=== PATIENT | male | born 1935 | race Caucasian/White ===

== ENCOUNTER 2022-07-15 08:34 | Inpatient (IN) ==
[2022-07-15] MEDS ORDERED: SODIUM CHLORIDE 0.9% 500 ML IV SCH (09:00)
--- NOTE | 2022-07-15 09:21 | Emergency Department Note ---
Impression & Plan Acute alteration in mental status, SARS-CoV-2 positive this is not my note but the system is forcing me to sign. [facility] ED Provider Note NAME: LA NENA SCHAEFER Jr AGE: 87 SEX: M : 1935 ARRIVES VIA: Ambulance INFORMANT: Patient, EMS personnel, the patient's family ED PROVIDER(S): Chava Chavez DO CHIEF COMPLAINT: Altered mental status HPI: The patient is an 87-year-old male who presented to the emergency depar tme by ambulance for an evaluation of altered mental status. The patient has a history of metastatic prostate cancer. Patient at this time does answer some questions. He is denying having any chest pain. He denies having any headache. There is no reported vomiting or fever. This morning he was noted to be confused. He was talking inappropriately. He did not have a positive stroke screen for the prehospital personnel. The patient arrived via ALS. The patient went to bed at his normal time. He was last known completely well sometime around 10 PM. The patient was in his normal mental status last evening. ROS: See above HPI for pertinent positives & negatives. A total of 10 systems reviewed and were otherwise negative. PAST MEDICAL HISTORY: See Below PAST SURGICAL HISTORY: See Below FAMILY HISTORY: See Below SOCIAL HISTORY: See Below HOME MEDICATIONS: See Below ALLERGIES: See Below VITALS: See Below PHYSICAL EXAMINATION: GENERAL: The patient is listless and slow to answer questions. He does appear to answer to his name. EARS, NOSE, MOUTH AND THROAT: The nose is without any evidence of any deformity. NECK: The neck is nontender and supple. RESPIRATORY: Normal respiratory effort is noted there is no evidence of wheezing rhonchi or rales CARDIOVASCULAR: Irregular heart sounds were noted to auscultation. There is no definite murmur. GASTROINTESTINAL: The abdomen is distended. There is diffuse tenderness palpation but no guarding rigidity. MUSCULOSKELETAL/EXTREMITIES: There is no evidence of gross deformity full range of motion is noted in the hips and shoulders. SKIN: Skin is warm and dry. There is no significant edema. NEUROLOGIC: Patient is awake verbal commands. He is oriented to person and place. Strength is diminished but symmetric. Voice is very soft. MEDICAL DECISION MAKING: The patient is an 87-year-old male who presented to the emergency department for evaluation of altered mental status. The patient was with family who noted him to be confused this morning. He arrived via ALS. There was no definite focal neurologic findings. The patient was not made a stroke alert because his last known well time was last evening somewhere around 10 PM. I discussed the patient's laboratory and radiographic studies with him and his family members. Because no definite cause could be found and because the patient still had altered mental status I discussed his condition with the on-call [facility] hospitalist. They have agreed to evaluate the patient in the emergency depart ment for further management and disposition. Triage Nursing notes reviewed. Prior medical records reviewed Vital Signs: reviewed and remarkable for no significant abnormalities Differential diagnosis: Infection, hypoglycemia, electrolyte abnormalities, overdose, toxicologic, cardiac sources, intracerebral event, neurologic, trauma, as well as other pathologies. ER treatment provided: See below Diagnostics interpreted by me: ECG: EKG was obtained in the emergency department. My interpretation is atrial fibrillation at 95 bpm. There was no PVCs noted. Nonspecific ST abnormalities were noted. Poor R wave progression was noted. This was compared to a tracing from February 18, 2022. No changes were noted. Cardiac Monitoring: An order was placed for continuous cardiac monitoring. The monitor shows a rate of 83 bpm with sinus rhythm. Laboratory studies: As stated above and show below. Imaging studies: See below. Radiographic imaging was reviewed by myself Consultation(s): I discussed this case [facility]. Past Med/Surg History Medical History GERD (gastroesophageal reflux disease) Hyperlipidemia Hypertension Prostate cancer metastatic to bone Surgical History H/O lithotripsy S/P appendectomy S/P cholecystectomy S/P hernia repair Family History Uncle Skin cancer Social History Smoking Status: Former smoker Hx Alcohol Use: No Preferred Language: Thai Communication Ability: Effective Guest Associate Required: No marital status: / Current Living Situation: Family Current Living Situation Comment: home with granddaughter Whit current occupational status: retired Feels Safe at Home: Yes Allergies Allergies Allergy/AdvReac Type Severity Reaction Status Date / Time No Known Drug Allergies Allergy Unknown Verified 02/26/22 21:16 donepezil [From Aricept] AdvReac Intermediate Diarrhea Unverified 08/15/21 11:43 Home Meds Home Medications Medication Instructions Recorded Confirmed allopurinol 100 mg tablet 100 mg PO QAM 02/03/20 07/15/22 aspirin 81 mg tablet,delayed 81 mg PO QAM 02/03/20 07/15/22 release cholecalciferol (vitamin D3) 25 25 mcg PO DAILY 02/03/20 07/15/22 mcg (1,000 unit) capsule ascorbic acid (vitamin C) 1,000 mg 1 g PO DAILY 06/25/20 07/15/22 tablet (Vitamin C) cyanocobalamin (vitamin B-12) 1,000 mcg PO DAILY 06/25/20 07/15/22 1,000 mcg tablet (Vitamin B-12) diclofenac sodium 1 % topical gel 2 g topical UD PRN Pain, Moderate 06/25/20 07/15/22 omeprazole 20 mg capsule,delayed 20 mg PO DAILY 06/25/20 07/15/22 release pyridoxine (vitamin B6) 100 mg 100 mg PO DAILY 06/25/20 07/15/22 tablet (Vitamin B-6) abiraterone 500 mg tablet 1,000 mg PO HS 02/26/22 07/15/22 lisinopril 2.5 mg tablet 2.5 mg PO HS 02/26/22 07/15/22 nitroglycerin 0.4 mg sublingual 0.4 mg sublingual UD PRN Chest Pain 02/26/22 07/15/22 tablet sennosides 8.6 mg capsule (senna) 8.6 mg PO DAILY 02/26/22 07/15/22 gabapentin 100 mg capsule 100 mg PO AMHS 07/15/22 07/15/22 Results & Data (ED) Vital Signs Vital Signs - 24 hr 07/15/22 09:03 07/15/22 08:33 07/15/22 09:33 Temperature 36.9 C Temperature Source Oral Pulse Rate 90 103 H 91 H Pulse Rhythm Regular Respiratory Rate 21 21 Respiratory Effort / Characteristics Non-Labored Respiratory Depth Normal Respiratory Pattern Regular Blood Pressure 184/143 H Blood Pressure Mean 156 Blood Pressure Position Sitting Pulse Oximetry 94 94 Oxygen Delivery Method Room Air Room Air Sepsis Recent Fever Within 48 Hours No Sepsis New/Unexplained Change in Mental Status No Sepsis Action Taken by Nursing Physician Notified 07/15/22 09:33 Temperature Temperature Source Pulse Rate Pulse Rhythm Respiratory Rate Respiratory Effort / Characteristics Respiratory Depth Respiratory Pattern Blood Pressure Blood Pressure Mean Blood Pressure Position Pulse Oximetry 93 Oxygen Delivery Method Room Air Sepsis Recent Fever Within 48 Hours Sepsis New/Unexplained Change in Mental Status Sepsis Action Taken by Snf Medications Current Medication List: was personally reviewed by me Laboratory Data Attestation: I reviewed the patient's lab results. 07/15/22 08:30 07/15/22 08:30 Lab Results 07/15/22 07/15/22 07/15/22 Range/Units 08:30 08:30 08:30 WBC 8.43 (4.8-10.8) K/ul RBC 4.74 (4.70-6.10) M/uL Hgb 15.6 (14.0-18.0) g/dl Hct 44.8 (42.0-52.0) % MCV 94.5 (80.0-100.0) fL MCH 32.9 (25.0-34.0) pg MCHC 34.8 (32.0-36.0) g/dL RDW Std Deviation 52.0 H (36.4-46.3) fL RDW Coeff of Neville 14.9 H (11.5-14.5) % Plt Count 144 (130-400) K/uL MPV 10.3 (9.4-12.4) fL Immature Gran % (Auto) 0.4 % Neut % (Auto) 85.4 % Lymph % (Auto) 6.8 % Stephenson % (Auto) 4.9 % Eos % (Auto) 2.1 % Baso % (Auto) 0.4 % Neut # (Auto) 7.21 H (1.40-6.50) K/uL Lymph # (Auto) 0.57 L (1.2-3.4) K/uL Stephenson # (Auto) 0.41 (0.11-0.59) K/uL Eos # (Auto) 0.18 (0-0.50) K/uL Baso # (Auto) 0.03 (0-0.2) K/uL Immature Gran # (Auto) 0.03 (0.01-0.20) K/uL PT 11.4 (9.0-12.0) Seconds INR 1.1 (0.9-1.1) APTT 24.9 (21.0-31.0) Seconds PTT Ratio 0.9 Sodium 140 (136-145) mmol/L Potassium 4.0 (3.5-5.1) mmol/L Chloride 105 (98-107) mmol/L Carbon Dioxide 26 (21-32) mmol/L Anion Gap 9 (3-11) BUN 23 (6-23) mg/dl Creatinine 1.08 (0.6-1.4) mg/dl Est Cr Clr Drug Dosing 47.9 ml/min Est GFR ( Amer) 70.2 ml/min Est GFR (Non-Af Amer) 60.5 ml/min BUN/Creatinine Ratio 21.3 H (10-20) Glucose 132 H (70-99(Fasting)) mg/dl Calcium 9.9 (8.5-10.1) mg/dl Magnesium 1.7 (1.7-2.4) mg/dl Total Bilirubin 2.0 H (0.2-1.0) mg/dl Direct Bilirubin 0.3 H (0-0.2) mg/dl AST 57 H (13-39) U/L ALT 32 (7-52) U/L Alkaline Phosphatase 89 (34-104) U/L Ammonia (18-72) umol/L Total Creatine Kinase 102 (30-223) U/L Troponin I High Sens 19.6 (0-20) pg/ml Total Protein 7.3 (6.0-8.3) gm/dl Albumin 3.9 (3.4-5.0) gm/dl Globulin 3.4 (2.5-4.0) gm/dl Albumin/Globulin Ratio 1.1 (0.9-2) Procalcitonin (0-0.5) ng/ml TSH (0.300-4.500) uIu/ml Free T4 (0.61-1.60) ng/dl Urine Color Urine Appearance (Clear) Urine pH (4.5-7.5) Ur Specific Prescott (1.000-1.030) Urine Protein (Negative) Urine Glucose (UA) (Negative) Urine Ketones (Negative) Urine Blood (Negative) Urine Nitrite (Negative) Urine Bilirubin (Negative) Urine Urobilinogen (Negative) Ur Leukocyte Esterase (Negative) Urine Opiates Screen (Neg) Ur Methadone, Qual (Neg) Urine Barbiturates (Neg) Ur Phencyclidine (PCP) (Neg) U Amphetamin/Meth Scrn (Neg) MDMA (Ecstasy) Screen (Neg) U Benzodiazepines Scrn (Neg) Ur Cocaine Metabolite (Neg) U Marijuana (THC) Screen (Neg) 07/15/22 07/15/22 07/15/22 Range/Units 08:30 10:48 10:48 WBC (4.8-10.8) K/ul RBC (4.70-6.10) M/uL Hgb (14.0-18.0) g/dl Hct (42.0-52.0) % MCV (80.0-100.0) fL MCH (25.0-34.0) pg MCHC (32.0-36.0) g/dL RDW Std Deviation (36.4-46.3) fL RDW Coeff of Neville (11.5-14.5) % Plt Count (130-400) K/uL MPV (9.4-12.4) fL Immature Gran % (Auto) % Neut % (Auto) % Lymph % (Auto) % Stephenson % (Auto) % Eos % (Auto) % Baso % (Auto) % Neut # (Auto) (1.40-6.50) K/uL Lymph # (Auto) (1.2-3.4) K/uL Stephenson # (Auto) (0.11-0.59) K/uL Eos # (Auto) (0-0.50) K/uL Baso # (Auto) (0-0.2) K/uL Immature Gran # (Auto) (0.01-0.20) K/uL PT (9.0-12.0) Seconds INR (0.9-1.1) APTT (21.0-31.0) Seconds PTT Ratio Sodium (136-145) mmol/L Potassium (3.5-5.1) mmol/L Chloride (98-107) mmol/L Carbon Dioxide (21-32) mmol/L Anion Gap (3-11) BUN (6-23) mg/dl Creatinine (0.6-1.4) mg/dl Est Cr Clr Drug Dosing ml/min Est GFR ( Amer) ml/min Est GFR (Non-Af Amer) ml/min BUN/Creatinine Ratio (10-20) Glucose (70-99(Fasting)) mg/dl Calcium (8.5-10.1) mg/dl Magnesium (1.7-2.4) mg/dl Total Bilirubin (0.2-1.0) mg/dl Direct Bilirubin (0-0.2) mg/dl AST (13-39) U/L ALT (7-52) U/L Alkaline Phosphatase (34-104) U/L Ammonia (18-72) umol/L Total Creatine Kinase (30-223) U/L Troponin I High Sens (0-20) pg/ml Total Protein (6.0-8.3) gm/dl Albumin (3.4-5.0) gm/dl Globulin (2.5-4.0) gm/dl Albumin/Globulin Ratio (0.9-2) Procalcitonin (0-0.5) ng/ml TSH 10.757 H (0.300-4.500) uIu/ml Free T4 0.93 (0.61-1.60) ng/dl Urine Color Yellow Urine Appearance Clear (Clear) Urine pH 5.5 (4.5-7.5) Ur Specific Prescott 1.019 (1.000-1.030) Urine Protein Negative (Negative) Urine Glucose (UA) Negative (Negative) Urine Ketones Negative (Negative) Urine Blood Negative (Negative) Urine Nitrite Negative (Negative) Urine Bilirubin Negative (Negative) Urine Urobilinogen Negative (Negative) Ur Leukocyte Esterase Negative (Negative) Urine Opiates Screen Neg (Neg) Ur Methadone, Qual Neg (Neg) Urine Barbiturates Neg (Neg) Ur Phencyclidine (PCP) Neg (Neg) U Amphetamin/Meth Scrn Neg (Neg) MDMA (Ecstasy) Screen Neg (Neg) U Benzodiazepines Scrn Neg (Neg) Ur Cocaine Metabolite Neg (Neg) U Marijuana (THC) Screen Neg (Neg) 07/15/22 07/15/22 Range/Units 11:41 11:48 WBC (4.8-10.8) K/ul RBC (4.70-6.10) M/uL Hgb (14.0-18.0) g/dl Hct (42.0-52.0) % MCV (80.0-100.0) fL MCH (25.0-34.0) pg MCHC (32.0-36.0) g/dL RDW Std Deviation (36.4-46.3) fL RDW Coeff of Neville (11.5-14.5) % Plt Count (130-400) K/uL MPV (9.4-12.4) fL Immature Gran % (Auto) % Neut % (Auto) % Lymph % (Auto) % Stephenson % (Auto) % Eos % (Auto) % Baso % (Auto) % Neut # (Auto) (1.40-6.50) K/uL Lymph # (Auto) (1.2-3.4) K/uL Stephenson # (Auto) (0.11-0.59) K/uL Eos # (Auto) (0-0.50) K/uL Baso # (Auto) (0-0.2) K/uL Immature Gran # (Auto) (0.01-0.20) K/uL PT (9.0-12.0) Seconds INR (0.9-1.1) APTT (21.0-31.0) Seconds PTT Ratio Sodium (136-145) mmol/L Potassium (3.5-5.1) mmol/L Chloride (98-107) mmol/L Carbon Dioxide (21-32) mmol/L Anion Gap (3-11) BUN (6-23) mg/dl Creatinine (0.6-1.4) mg/dl Est Cr Clr Drug Dosing ml/min Est GFR ( Amer) ml/min Est GFR (Non-Af Amer) ml/min BUN/Creatinine Ratio (10-20) Glucose (70-99(Fasting)) mg/dl Calcium (8.5-10.1) mg/dl Magnesium (1.7-2.4) mg/dl Total Bilirubin (0.2-1.0) mg/dl Direct Bilirubin (0-0.2) mg/dl AST (13-39) U/L ALT (7-52) U/L Alkaline Phosphatase (34-104) U/L Ammonia 25.0 (18-72) umol/L Total Creatine Kinase (30-223) U/L Troponin I High Sens (0-20) pg/ml Total Protein (6.0-8.3) gm/dl Albumin (3.4-5.0) gm/dl Globulin (2.5-4.0) gm/dl Albumin/Globulin Ratio (0.9-2) Procalcitonin 2.51 H (0-0.5) ng/ml TSH (0.300-4.500) uIu/ml Free T4 (0.61-1.60) ng/dl Urine Color Urine Appearance (Clear) Urine pH (4.5-7.5) Ur Specific Prescott (1.000-1.030) Urine Protein (Negative) Urine Glucose (UA) (Negative) Urine Ketones (Negative) Urine Blood (Negative) Urine Nitrite (Negative) Urine Bilirubin (Negative) Urine Urobilinogen (Negative) Ur Leukocyte Esterase (Negative) Urine Opiates Screen (Neg) Ur Methadone, Qual (Neg) Urine Barbiturates (Neg) Ur Phencyclidine (PCP) (Neg) U Amphetamin/Meth Scrn (Neg) MDMA (Ecstasy) Screen (Neg) U Benzodiazepines Scrn (Neg) Ur Cocaine Metabolite (Neg) U Marijuana (THC) Screen (Neg) Administered Medications Ceftriaxone Sodium 1,000 mg/ (Dextrose) 50 mls @ 100 mls/hr IV DAILY KAMARI; Pr otocol Stop: 07/22/22 15:29 Last Infusion: 07/15/22 19:24 Dose: 0 mls/hr Documented By: Admin: 07/15/22 17:16 Dose: 100 mls/hr Documented By: AUSTEN Levothyroxine Sodium (Levothyroxine Sodium 50 Mcg Tablet) 50 mcg PO DAILYBB KAMARI Stop: 08/14/22 15:09 Last Admin: 07/15/22 17:00 Dose: Not Given Documented By: AUSTEN Miscellaneous (Abiraterone - Order Awaiting Action) 1 each N/A QS KAMARI Stop: 08/14/22 15:59 Last Admin: 07/15/22 18:49 Dose: Not Given Documented By: CAM Saccharomyces Boulardii (Saccharomyces Boulardii 250 Mg Cap) 250 mg PO DAILY KAMARI Stop: 08/14/22 15:09 Last Admin: 07/15/22 17:00 Dose: Not Given Documented By: Discontinued Medications Azithromycin (Azithromycin 250 Mg Tab) 500 mg PO NOW ONE Stop: 07/15/22 15:11 Last Admin: 07/15/22 16:29 Dose: Not Given Documented By: Gadobutrol (Gadobutrol 65ml Vial) 7.5 ml IV ONCE ONE Stop: 07/15/22 12:57 Last Admin: 07/15/22 12:57 Dose: 7.5 ml Documented By: Sodium Chloride (Nss) 500 mls @ 999 mls/hr IV .Q31M KAMARI Stop: 07/15/22 09:30 Last Infusion: 07/15/22 10:12 Dose: 0 mls/hr Documented By: Admin: 07/15/22 09:40 Dose: 999 mls/hr Documented By: Magnesium Sulfate/Dextrose (Magnesium Sulfate / D5w) 1 gm in 100 mls @ 100 mls/hr IV NOW STA Stop: 07/15/22 12:29 Last Infusion: 07/15/22 14:36 Dose: 0 mls/hr Documented By: Admin: 07/15/22 13:36 Dose: 100 mls/hr Documented By: Acetaminophen (Ofirmev) 1,000 mg in 100 mls @ 400 mls/hr IV NOW STA Stop: 07/15/22 15:22 Last Infusion: 07/15/22 15:37 Dose: 0 mls/hr Documented By: Admin: 07/15/22 15:22 Dose: 400 mls/hr Documented By: Azithromycin 500 mg/ Dextrose 255 mls @ 127.5 mls/hr IV NOW STA Stop: 07/15/22 17:38 Last Infusion: 07/15/22 17:13 Dose: 0 mls/hr Documented By: Admin: 07/15/22 16:51 Dose: 127.5 mls/hr Documented By: Imaging Data Radiologist's Impression: Abdomen/Pelvis CT 07/15/22 08:46 CT abd pelvis wo con CLINICAL HISTORY: distended TECHNIQUE: Helical axial images of the abdomen and pelvis were obtained. Automated dose lowering techniques and/or adjustment according to patient size were utilized for this exam. This exam was performed without intravenous contrast. CT DOSE: 1332.78 mGy.cm COMPARISON: Comparison is made to CT abdomen pelvis 02/26/2022 FINDINGS: Lower chest: Biatrial enlargement is seen. Liver: Unremarkable. No focal lesions are seen. Gallbladder and biliary tree: Patient is status post cholecystectomy. No intra- or extrahepatic biliary ductal dilation. Pancreas: Unremarkable, no focal lesions. Spleen: Unremarkable. Adrenals: Unremarkable. Kidneys and ureters: Nonobstructive nephrolithiasis is seen. Bladder: Unremarkable. Reproductive organs: Unremarkable. Bowel: Patient is status post appendectomy. Lymph nodes Retroperitoneal: Unremarkable. Pelvic: Unremarkable. Mesenteric: Unremarkable. Peritoneum: Normal. Vessels: Tiny infrarenal aortic aneurysm measures up to 28 mm in diameter. Abdominal wall: Unremarkable. Bones: Degenerative changes in the visualized spine. IMPRESSION: No acute abnormalities and in particular no evidence of bowel obstruction. ACT 112: Negative or not required by law. Electronically signed by: Nguyễn Roblero M.D. 07/15/2022 9:24 AM Chest X-Ray 07/15/22 08:46 XR chest 1V portable HISTORY: 87 years-old Male weakness acute weakness COMPARISON: Chest radiograph 02/26/2022 TECHNIQUE: AP view of the chest FINDINGS: Cardiac silhouette is enlarged. Atherosclerosis of the aorta. No pneumothorax. Trace pleural effusions. Chronic interstitial coarsening. Subtle ill-defined bilateral midlung opacities are new from prior. Degenerative changes of the shoulders and spine. IMPRESSION: 1. Cardiomegaly without overt pulmonary edema. 2. Chronic interstitial coarsening with subtle ill-defined bilateral airspace opacities. Correlate clinically to exclude a nonspecific infectious or inf lammatory pneumonitis. ACT 112: Negative or not required by law. The above report was generated using voice recognition software. It may contain grammatical, syntax or spelling errors. Electronically signed by: Zechariah Quinteros M.D. 07/15/2022 9:[address] 07/15/22 08:46 CT head/brain wo con CLINICAL HISTORY: 87 years-old Male with ams. Acutely altered mental status TECHNIQUE: Multiple axial CT images of the head were obtained without contrast. A dose lowering technique was utilized adhering to the principles of ALARA. COMPARISON: 02/19/2022 PET FINDINGS: No acute intracranial hemorrhage, midline shift, intracranial mass, hydrocephalus, territorial ischemia or abnormal extra-axial collection. Involutional changes with chronic microvascular ischemic disease. The study is motion degraded. The calvarium is intact. Status post resection of the previously described right facial lesion. Complete opacification of the mastoid air cells and bilateral middle ear effusions. Unremarkable soft tissues. IMPRESSION: 1. No acute intracranial abnormality. 2. Large mastoid and middle ear effusions, similar to the prior study. ACT 112: Negative or not required by law. The above report was generated using voice recognition software. It may contain grammatical, syntax or spelling errors. Electronically signed by: Zechariah Quinteros M.D. 07/15/2022 9:19 AM Brain MRI 07/15/22 11:33 MRI OF THE BRAIN COMBO CLINICAL HISTORY: Strokelike symptoms. COMPARISON STUDY: CT of the brain dated 07/15/2022. TECHNIQUE: MRI of the brain was performed utilizing various T1 and T2-weighted sequences in the axial, sagittal, and coronal planes. Contrast-enhanced sequences were acquired following the administration of 7.5 cc of Gadavist. FINDINGS: Brain parenchyma: There is age-related involutional change noting mild subcortical and periventricular microangiopathic disease. There is no hemorrhage or mass effect. There is no restricted diffusion to suggest acute ischemia. No enhancing mass lesion is identified on the postcontrast images. Gonzalez-white matter differentiation is preserved. No extra-axial fluid collection is seen. The cerebellar tonsils are normal in configuration. Ventricles, sulci, and cisterns: Prominent secondary to involutional change. Pituitary and sella: Unremarkable. Intracranial vasculature: Normal flow voids are maintained at the skull base. Orbits: The bony orbits are grossly intact. Orbital contents are normal in appearance. Sinuses and mastoids: There are bilateral mastoid effusions, left larger than right. Fluid is seen within the middle ear bilaterally. Mucosal thickening is noted in the sphenoid sinuses. The remaining paranasal sinuses are clear. Calvarium: Unremarkable. Cervical cord: Partially visualized cervical spinal cord is normal in morphology and signal intensity. IMPRESSION: No acute intracranial abnormality. ACT 112: Negative or not required by law. Electronically signed by: Austin Darby M.D. 07/15/2022 1:09 PM Discharge Plan Visit Data Patient Disposition: Admitted As Inpatient Discharge Instructions Interventions: ED Discharge Assessment Last Done: 07/15/22 15:10
--- NOTE | 2022-07-15 09:21 | CT Scan Report ---
CT head/brain wo con CLINICAL HISTORY: 87 years-old Male with ams. Acutely altered mental status TECHNIQUE: Multiple axial CT images of the head were obtained without contrast. A dose lowering tech nique was utilized adhering to the principles of ALARA. COMPARISON: 02/19/2022 PET FINDINGS: No acute intracranial hemorrhage, midline shift, intracranial mass, hydrocephalus, territorial ischem ia or abnormal extra-axial collection. Involutional changes with chronic microvascular ischemic disea se. The study is motion degraded. The calvarium is intact. Status post resection of the previously described right facial lesion. Compl ete opacification of the mastoid air cells and bilateral middle ear effusions. Unremarkable soft tiss ues. IMPRESSION: 1. No acute intracranial abnormality. 2. Large mastoid and middle ear effusions, similar to the prior study. ACT 112: Negative or not required by law. The above report was generated using voice recognition software. It may contain grammatical, syntax o r spelling errors. Electronically signed by: Zechariah Quinteros M.D. 07/15/2022 9:19 AM
[2022-07-15 09:22] LABS: Basophils # (auto) 0.03 K/uL (0-0.2); Basophils % (auto) 0.4 %; Eosinophils # (auto) 0.18 K/uL (0-0.50); Eosinophils % (auto) 2.1 %; Hematocrit (blood only) 44.8 % (42.0-52.0); Hemoglobin 15.6 g/dl (14.0-18.0); Immature Granulocytes # (auto) 0.03 K/uL (0.01-0.20); Immature Granulocytes % (auto) 0.4 %; Lymphocytes # (auto) 0.57 K/uL (1.2-3.4); Lymphocytes % (auto) 6.8 %; Mean Corpuscular Hemoglobin 32.9 pg (25.0-34.0); Mean Corpuscular Hgb Conc 34.8 g/dL (32.0-36.0); Mean Corpuscular Volume 94.5 fL (80.0-100.0); Mean Platelet Volume 10.3 fL (9.4-12.4); Monocytes # (auto) 0.41 K/uL (0.11-0.59); Monocytes % (auto) 4.9 %; Neutrophils # (auto) 7.21 K/uL (1.40-6.50); Neutrophils % (auto) 85.4 %; Platelet Count 144 K/uL (130-400); RDW Coefficient of Variation 14.9 % (11.5-14.5); Red Blood Count 4.74 M/uL (4.70-6.10); White Blood Count 8.43 K/ul (4.8-10.8)
--- NOTE | 2022-07-15 09:25 | CT Scan Report ---
CT abd pelvis wo con CLINICAL HISTORY: distended TECHNIQUE: Helical axial images of the abdomen and pelvis were obtained. Automated dose lowering tech niques and/or adjustment according to patient size were utilized for this exam. This exam was perfor med without intravenous contrast. CT DOSE: 1332.78 mGy.cm COMPARISON: Comparison is made to CT abdomen pelvis 02/26/2022 FINDINGS: Lower chest: Biatrial enlargement is seen. Liver: Unremarkable. No focal lesions are seen. Gallbladder and biliary tree: Patient is status post cholecystectomy. No intra- or extrahepatic bilia ry ductal dilation. Pancreas: Unremarkable, no focal lesions. Spleen: Unremarkable. Adrenals: Unremarkable. Kidneys and ureters: Nonobstructive nephrolithiasis is seen. Bladder: Unremarkable. Reproductive organs: Unremarkable. Bowel: Patient is status post appendectomy. Lymph nodes Retroperitoneal: Unremarkable. Pelvic: Unremarkable. Mesenteric: Unremarkable. Peritoneum: Normal. Vessels: Tiny infrarenal aortic aneurysm measures up to 28 mm in diameter. Abdominal wall: Unremarkable. Bones: Degenerative changes in the visualized spine. IMPRESSION: No acute abnormalities and in particular no evidence of bowel obstruction. ACT 112: Negative or not required by law. Electronically signed by: Nguyễn Roblero M.D. 07/15/2022 9:24 AM
[2022-07-15 09:39] LABS: Albumin Globulin Ratio 1.1 (0.9-2); Albumin Level 3.9 gm/dl (3.4-5.0); BUN Creatinine Ratio 21.3 (10-20); Calcium 9.9 mg/dl (8.5-10.1); Creatinine Clr Calc Pharmacy 47.9 ml/min; Est GFR (African American) 70.2 ml/min; Est GFR (Non-African American) 60.5 ml/min; Globulin 3.4 gm/dl (2.5-4.0); Magnesium 1.7 mg/dl (1.7-2.4); Total Protein 7.3 gm/dl (6.0-8.3)
[2022-07-15 09:45] LABS: Troponin I High Sensitivity 19.6 pg/ml (0-20)
--- NOTE | 2022-07-15 09:50 | XRay Report ---
XR chest 1V portable HISTORY: 87 years-old Male weakness acute weakness COMPARISON: Chest radiograph 02/26/2022 TECHNIQUE: AP view of the chest FINDINGS: Cardiac silhouette is enlarged. Atherosclerosis of the aorta. No pneumothorax. Trace pleural effusion s. Chronic interstitial coarsening. Subtle ill-defined bilateral midlung opacities are new from prior . Degenerative changes of the shoulders and spine. IMPRESSION: 1. Cardiomegaly without overt pulmonary edema. 2. Chronic interstitial coarsening with subtle ill-defined bilateral airspace opacities. Correlate cl inically to exclude a nonspecific infectious or inflammatory pneumonitis. ACT 112: Negative or not required by law. The above report was generated using voice recognition software. It may contain grammatical, syntax o r spelling errors. Electronically signed by: Zechariah Quinteros M.D. 07/15/2022 9:48 AM
[2022-07-15 09:54] LABS: Thyroid Stimulating Hormone 10.757 uIu/ml (0.300-4.500)
[2022-07-15 09:58] LABS: INR 1.1 (0.9-1.1); Partial Thromboplastin Ratio 0.9; Partial Thromboplastin Time 24.9 Seconds (21.0-31.0); Prothrombin Time 11.4 Seconds (9.0-12.0)
[2022-07-15 10:29] LABS: T4 Free Thyroxine 0.93 ng/dl (0.61-1.60)
--- NOTE | 2022-07-15 11:24 | History & Physical Report ---
Date of Service July 15, 2022 Assessment & Plan (1) Metabolic encephalopathy: (2) Generalized weakness: (3) SARS-CoV-2 positive: (4) Prostate cancer metastatic to bone: (5) Hypothyroidism (acquired): (6) Hypertension: (7) Hyperlipidemia: (8) GERD (gastroesophageal reflux disease): Plan This is a 87-year-old male who has a significant past medical history of atrial fibrillation not on anticoagulation, HTN, HLD, gout, metastatic prostate cancer who presents to ED secondary to altered mental status x1 day. Pt Last known well, 07/14/22 prior to going to bed. Woke up 07/15/22 and granddaughter found in wheel chair confused, not acting self, with L sided weakness Metabolic Encephalopathy Generalized weakness SARS COV2 Positive Questionable pneumonitis on imaging admit to tele with procalcitonin elevated will treat empirically with Rocephin and azithromycin (500mg x 1 today and then 250mg po x 4 days) add probiotic MRI obtained w/o acute abnormality PT/OT blood culture pending clinically source does not appear to be infectious, although imaging of chest reading possible pneumonitis, likely 2/2 covid LR @ 80cc/hr x2 bag replace thyroid neuro checks sx may be explained 2/2 covid-19 dx, although he is mostly w/o resp sx given no hypoxia will hold off on any covid specific tx right now will hold gabapentin for now given mental status will make pt NPO as per nurse pt unable to cooperate with dysphagia screen due to cognition, will make NPO until more alert Hypothyroidism TSH elevated 10.7, although free T4 wnl but 0.93 will start levothyroxine 50mcg daily recommend recheck tsh as OP 6-8 weeks Afib pt with known afib follows Dr. Sarabia not on any OAC 2/2 to frail and fall risk on ASA, rate controlled give 1g mag sulfate, K 4.0 Prostate Ca with mets to Bone follows Dr[facility], last seen 06/05/22 currently on abiraterone, LFTS need followed per family was on Xtandi til 07/13 and stopped on his own, Dr. Arenas recommended restarting Abiraterone which he took on 07/14 ( he previously tolerated this med) He receives Lupron [id number] Hyperglycemia bsg 132 in ED A1C in a.m. 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 Guerrero, please see addendum A total of 75 minutes were spent with greater than 50% of that time face to face with the patient, personally reviewing all current laboratories, imaging studies, past medication reconciliation, outpatient chart review, and discussion with specialists to collaborate care for the patient with attending. Please see attending documentation for corrections and/or additions. History of Present Illness Chief Complaint: Altered mental status x1 day. Primary Care Provider: William Potts This is a 87-year-old male who has a significant past medical history of atrial fibrillation not on anticoagulation, HTN, HLD, gout, metastatic prostate cancer who presents to ED secondary to altered mental status x1 day. History is mostly obtained from prehospital personnel and ED provider. Son at bedside provides minimal history. Patient was in his normal mental state of health as of yesterday on 07/14/2022. His granddaughter lives with him. At approximately 7:00 this morning she heard him trying to get up and around. She found him in his wheelchair confused and not acting himself with concern for L sided weakness. She noted when she tried to put his left arm back on his wheel chair that it fell right back off. There was report that he may have been slurring his words. Due to change in status EMS was summoned. According to EMS report his vital signs were stable. It is noted that he recently was started and stopped on Xtandi approximately 2 days ago and that it was causing hallucinations. No reported seizure activity. He does have stage IV prostate cancer and [facility] At baseline he is typically in a wheelchair but able to perform self transfers. His granddaughter does assist him but able to perform adls. Typically he is alert and oriented x3 with occasional bouts of confusion. In ED patient remained hemodynamically stable. There is initial reading of significantly elevated blood pressure however during my evaluation his blood pressure was normotensive. His CBC and CMP were generally unremarkable except for mildly elevated glucose at 132, total bilirubin at 2.0 and AST of 57. His TSH was 10.75 however free T4 was normal. Blood cultures, drug tox screen, ammonia level and urine currently pending on admission. EKG revealed a rate controlled atrial fibrillation. Patient follows with [facility] cardiology. He is not anticoagulated secondary to age, frailty and frequent falls. He did have recent lab work done on 06/16/2022 as outpatient that was reviewed and [facility] medical records. At that time BNP generally unremarkable, vitamin D 74. In regards to the patient's prostate cancer he was initially diagnosed in 2019 in which she had been on androgen deprivation therapy with Lupron as well as bicalutamide. Initial PSA was greater than 100. Records reviewed from December 2021 note revealed patient currently on abiraterone treatment. He does have mets to bone. Supportive care/hospice was also discussed. Most recent PSA 05/2022 was WNL. Allergies Allergy/AdvReac Type Severity Reaction Status Date / Time No Known Drug Allergies Allergy Unknown Verified 02/26/22 21:16 donepezil [From Aricept] AdvReac Intermediate Diarrhea Unverified 08/15/21 11:43 Home Medications Medication Instructions Recorded Confirmed Type allopurinol 100 mg tablet 100 mg PO QAM 02/03/20 07/15/22 History aspirin 81 mg tablet,delayed 81 mg PO QAM 02/03/20 07/15/22 History release cholecalciferol (vitamin D3) 25 25 mcg PO DAILY 02/03/20 07/15/22 History mcg (1,000 unit) capsule ascorbic acid (vitamin C) 1,000 mg 1 g PO DAILY 06/25/20 07/15/22 History tablet (Vitamin C) cyanocobalamin (vitamin B-12) 1,000 mcg PO DAILY 06/25/20 07/15/22 History 1,000 mcg tablet (Vitamin B-12) diclofenac sodium 1 % topical gel 2 g topical UD PRN Pain, Moderate 06/25/20 07/15/22 History omeprazole 20 mg capsule,delayed 20 mg PO DAILY 06/25/20 07/15/22 History release pyridoxine (vitamin B6) 100 mg 100 mg PO DAILY 06/25/20 07/15/22 History tablet (Vitamin B-6) abiraterone 500 mg tablet 1,000 mg PO HS 02/26/22 07/15/22 History lisinopril 2.5 mg tablet 2.5 mg PO HS 02/26/22 07/15/22 History nitroglycerin 0.4 mg sublingual 0.4 mg sublingual UD PRN Chest Pain 02/26/22 07/15/22 History tablet sennosides 8.6 mg capsule (senna) 8.6 mg PO DAILY 02/26/22 07/15/22 History gabapentin 100 mg capsule 100 mg PO AMHS 07/15/22 07/15/22 History Past Med/Surg History Medical History GERD (gastroesophageal reflux disease) Hyperlipidemia Hypertension Prostate cancer metastatic to bone Surgical History H/O lithotripsy S/P appendectomy S/P cholecystectomy S/P hernia repair Family History Uncle Skin cancer Social History Smoking Status: Former smoker Hx Alcohol Use: No Preferred Language: Turkmen Communication Ability: Effective Review Specialist Required: No marital status: / Current Living Situation: Family Current Living Situation Comment: home with granddaughter Whit current occupational status: retired Feels Safe at Home: Yes Review of Systems Review of Systems: All systems reviewed & are unremarkable except as noted in HPI & below Physical Exam Physical Exam: Constitutional: Elderly, M, Hard of hearing, WD/WN, vitals as above, NAD, lying in bed, drowsy but arousable to verbal stimulation, confused Head: Normocephalic, Atraumatic, temporal wasting Eyes: PERRL, conjunctivae normal, anicteric sclerae, ENMT: external ear and nose normal, oropharynx normal dry membranes Neck: trachea midline, no thyromegaly normal visual inspection Respiratory: normal respiratory effort, lungs clear to auscultation but decreased at bases due to poor insp effort/doesn't follow commands, no wheeze, rales, rhonchi. Normal insp/exp effort, no accessory muscle use Cardiovascular: reg rate, irr rhythm, no murmur, no edema Vessels: no JVD or carotid bruit Chest: normal inspection of chest Abdomen: normal bowel sounds, soft, nontender, no hepatosplenomegaly Musculoskeletal: no cyanosis or clubbing, AROM x 4, decreased wool scourer strength to LUE, b/l lower ext 3/5 Skin: no rashes, warm and dry normal turgor Neurologic: PERRL, EOMI, accommodation nl, no face palsy, no dysarthria CN's II-XI intact bilaterally and moves all extremities Psychiatric: A+Ox 1, understands he is in hospital butunable to tell me his name or son at bedside, euthymic affect Lymphatic: no cervical or axillary lymphadenopathy : deferred Results & Data Results & Data ([facility]) Vital Signs (Past 12 Hours) Vital Signs Temp Pulse Resp BP Pulse Ox O2 Del Method 07/15/22 09:33 93 Room Air 07/15/22 09:33 91 H 21 94 Room Air 07/15/22 08:33 36.9 C 103 H 21 184/143 H 94 Room Air 07/15/22 09:03 90 Laboratory Results Short CBC 07/15/22 Range/Units 08:30 WBC 8.43 (4.8-10.8) K/ul Hgb 15.6 (14.0-18.0) g/dl Hct 44.8 (42.0-52.0) % Plt Count 144 (130-400) K/uL BMP 07/15/22 08:30 Sodium 140 Potassium 4.0 Chloride 105 Carbon Dioxide 26 BUN 23 Creatinine 1.08 Glucose 132 H Calcium 9.9 Cardiac Enzymes 07/15/22 Range/Units 08:30 Total Creatine Kinase 102 (30-223) U/L Liver Function 07/15/22 Range/Units 08:30 Total Bilirubin 2.0 H (0.2-1.0) mg/dl Direct Bilirubin 0.3 H (0-0.2) mg/dl AST 57 H (13-39) U/L ALT 32 (7-52) U/L Alkaline Phosphatase 89 (34-104) U/L Albumin 3.9 (3.4-5.0) gm/dl Urine 07/15/22 Range/Units 10:48 Urine Color Yellow Urine Appearance Clear (Clear) Urine pH 5.5 (4.5-7.5) Ur Specific [place] 1.019 (1.000-1.030) Urine Protein Negative (Negative) Urine Glucose (UA) Negative (Negative) Diagnostic Findings Abdomen/Pelvis CT 07/15/22 08:46 CT abd pelvis wo con CLINICAL HISTORY: distended TECHNIQUE: Helical axial images of the abdomen and pelvis were obtained. Automated dose lowering techniques and/or adjustment according to patient size were utilized for this exam. This exam was performed without intravenous contrast. CT DOSE: 1332.78 mGy.cm COMPARISON: Comparison is made to CT abdomen pelvis 02/26/2022 FINDINGS: Lower chest: Biatrial enlargement is seen. Liver: Unremarkable. No focal lesions are seen. Gallbladder and biliary tree: Patient is status post cholecystectomy. No intra- or extrahepatic biliary ductal dilation. Pancreas: Unremarkable, no focal lesions. Spleen: Unremarkable. Adrenals: Unremarkable. Kidneys and ureters: Nonobstructive nephrolithiasis is seen. Bladder: Unremarkable. Reproductive organs: Unremarkable. Bowel: Patient is status post appendectomy. Lymph nodes Retroperitoneal: Unremarkable. Pelvic: Unremarkable. Mesenteric: Unremarkable. Peritoneum: Normal. Vessels: Tiny infrarenal aortic aneurysm measures up to 28 mm in diameter. Abdominal wall: Unremarkable. Bones: Degenerative changes in the visualized spine. IMPRESSION: No acute abnormalities and in particular no evidence of bowel obstruction. ACT 112: Negative or not required by law. Electronically signed by: Nguyễn Roblero M.D. 07/15/2022 9:24 AM Chest X-Ray 07/15/22 08:46 XR chest 1V portable HISTORY: 87 years-old Male weakness acute weakness COMPARISON: Chest radiograph 02/26/2022 TECHNIQUE: AP view of the chest FINDINGS: Cardiac silhouette is enlarged. Atherosclerosis of the aorta. No pneumothorax. Trace pleural effusions. Chronic interstitial coarsening. Subtle ill-defined bilateral midlung opacities are new from prior. Degenerative changes of the shoulders and spine. IMPRESSION: 1. Cardiomegaly without overt pulmonary edema. 2. Chronic interstitial coarsening with subtle ill-defined bilateral airspace opacities. Correlate clinically to exclude a nonspecific infectious or infl ammatory pneumonitis. ACT 112: Negative or not required by law. The above report was generated using voice recognition software. It may contain grammatical, syntax or spelling errors. Electronically signed by: Zechariah Quinteros M.D. 07/15/2022 9:[address] 07/15/22 08:46 CT head/brain wo con CLINICAL HISTORY: 87 years-old Male with ams. Acutely altered mental status TECHNIQUE: Multiple axial CT images of the head were obtained without contrast. A dose lowering technique was utilized adhering to the principles of ALARA. COMPARISON: 02/19/2022 PET FINDINGS: No acute intracranial hemorrhage, midline shift, intracranial mass, hydrocephalus, territorial ischemia or abnormal extra-axial collection. Involutional changes with chronic microvascular ischemic disease. The study is motion degraded. The calvarium is intact. Status post resection of the previously described right facial lesion. Complete opacification of the mastoid air cells and bilateral middle ear effusions. Unremarkable soft tissues. IMPRESSION: 1. No acute intracranial abnormality. 2. Large mastoid and middle ear effusions, similar to the prior study. ACT 112: Negative or not required by law. The above report was generated using voice recognition software. It may contain grammatical, syntax or spelling errors. Electronically signed by: Zechariah Quinteros M.D. 07/15/2022 9:19 AM Medications Administered Medication List Discontinued Medications Sodium Chloride (Nss) 500 mls @ 999 mls/hr IV .Q31M [facility] Stop: 07/15/22 09:30 Last Infusion: 07/15/22 10:12 Dose: 0 mls/hr Documented By: Admin: 07/15/22 09:40 Dose: 999 mls/hr Documented By: HG ECG Rate (beats per minute): 95 Rhythm: atrial fibrillation Additional Comments: ecg reviewed by vt COVID-19 Results Results COVID-19 Adm Lab Results: RBC 4.74 M/uL (4.70-6.10) 07/15/22 WBC 8.43 K/ul (4.8-10.8) 07/15/22 Hgb 15.6 g/dl (14.0-18.0) 07/15/22 Hct 44.8 % (42.0-52.0) 07/15/22 Plt Count 144 K/uL (130-400) 07/15/22 Neutrophils (%) (Auto) 85.4 % 07/15/22 Lymphocytes (%) (Auto) 6.8 % 07/15/22 Monocytes # (Auto) 0.41 K/uL (0.11-0.59) 07/15/22 Eosinophils # (Auto) 0.18 K/uL (0-0.50) 07/15/22 Immature Granulocyte % (Auto) 0.4 % 07/15/22 Neutrophils # (Auto) 7.21 K/uL (1.40-6.50) H 07/15/22 Lymphocytes # (Auto) 0.57 K/uL (1.2-3.4) L 07/15/22 Monocytes # (Auto) 0.41 K/uL (0.11-0.59) 07/15/22 Eosinophils # (Auto) 0.18 K/uL (0-0.50) 07/15/22 Basophils # (Auto) 0.03 K/uL (0-0.2) 07/15/22 Immature Granulocyte # (Auto) 0.03 K/uL (0.01-0.20) 3 Na 140 mmol/L (136-145) 07/15/22 K 4.0 mmol/L (3.5-5.1) 07/15/22 Cl 105 mmol/L (98-107) 07/15/22 CO2 26 mmol/L (21-32) 07/15/22 Anion Gap 9 (3-11) 07/15/22 BUN 23 mg/dl (6-23) 07/15/22 Creatinine 1.08 mg/dl (0.6-1.4) 07/15/22 BUN/Creatinine Ratio 21.3 (10-20) H 07/15/22 Glucose Level 132 mg/dl (70-99(Fasting)) H 07/15/22 Ca 9.9 mg/dl (8.5-10.1) 07/15/22 Total Bilirubin 2.0 mg/dl (0.2-1.0) H 07/15/22 Direct Bilirubin 0.3 mg/dl (0-0.2) H 07/15/22 AST/SGOT 57 U/L (13-39) H 07/15/22 ALT/SGPT 32 U/L (7-52) 07/15/22 Alkaline Phosphatase 89 U/L (34-104) 07/15/22 Total Protein 7.3 gm/dl (6.0-8.3) 07/15/22 Albumin 3.9 gm/dl (3.4-5.0) 07/15/22 Globulin 3.4 gm/dl (2.5-4.0) 07/15/22 Albumin/Globulin Ratio 1.1 (0.9-2) 07/15/22 Total CK 102 U/L (30-223) 07/15/22 Procalcitonin 2.51 ng/ml (0-0.5) H 07/15/22 PTT 24.9 Seconds (21.0-31.0) 07/15/22 INR 1.1 (0.9-1.1) 07/15/22 COVID-19 PCR POSITIVE (Negative) A* 07/15/22 Influenza Virus Type A (PCR) Negative (Neg) 07/15/22 Influenza Virus Type B (PCR) Negative (Neg) 07/15/22 Chest X-Ray 07/15/22 Code Status & VTE Plan Code Status DNR/DNI VTE Prophylaxis Plan VTE Prophylaxis will be ordered: Yes Supervising Physician Co-Signing Physician Notes I have seen and examined the patient and have discussed the case with the provider above. I agree with the assessment and plan as stated. 87 yo M with metastatic prostate cancer with mets to bone was found slumped over in his chair this morning by his granddaughter who lives with him. He was generally weak and confused so she called EMS. He has recently changed medications and is covid positive. There is no clear source of covid. GD states that she thought pt was at baseline yesterday and not ill-walking around, etc. He has been eating but is difficult to get him to drink water generally. He is afebrile and hem odynamically stable. After the abx, started for possible pneumonia, he is starting to perk up and speak to family. He is oriented to person, but is also hard of hearing. Lungs are clear to auscultation throughout with good respiratory effort when he wanted to give it. Cardiac exam reveals S1/2 heard with no murmurs, there is a regular rate and rhythm and no peripheral edema. He appears cold and was grateful for warm blankets. No gross focal neurologic deficits were seen. Labs reviewed and unremarkable aside from an elevated procalcitonin and TSH. Brain MRI revealed no acute intracranial abnormality and these results were shared with family. Trop is negative and EKG is without acute ischemic changes. Suspect acute metabolic encephalopathy from possible developing viral vs bacterial pneumonia. COVID-19 is very proinflammatory and can cause this response on its own. There may be some additional factors from the recent change in medications. Would defer further PSA testing to come from oncology and urology as needed. Woould not check PSA in this setting as it is an acute phase reactant. Agree with starting Synthroid at a low dose. Recheck TFTs in 6-8 weeks. Cesar, DO
[2022-07-15 11:26] LABS: Appearance Urine Clear (Clear); Bilirubin Urine Negative (Negative); Blood Urine Negative (Negative); Color Urine Yellow; Glucose Urine UA Negative (Negative); Ketones Urine Negative (Negative); Leukocyte Esterase Urine Negative (Negative); Nitrite Urine Negative (Negative); Protein Urine Negative (Negative); Specific Gravity Urine 1.019 (1.000-1.030); Urobilinogen Urine Negative (Negative); pH Urine 5.5 (4.5-7.5)
[2022-07-15] MEDS ORDERED: MAGNESIUM SULFATE / D5W 1 GM/100 ML BAG IV STA (11:30)
[2022-07-15 11:33] LABS: Bilirubin Direct 0.3 mg/dl (0-0.2)
[2022-07-15 12:07] LABS: Amphetamines+Metham, Urine Neg (Neg); Barbiturates, Urine Neg (Neg); Benzodiazepine, Urine Neg (Neg); Cocaine, Urine Neg (Neg); MDMA (Ecstacy), Urine Neg (Neg); Methadone, Urine Neg (Neg); Opiate, Urine Neg (Neg); Phencyclidine, Urine Neg (Neg)
[2022-07-15 12:10] LABS: Influenza A virus by PCR Negative (Neg); Influenza B virus by PCR Negative (Neg); RSV by PCR Negative (Neg)
[2022-07-15 12:18] LABS: SARS CoV2 RNA(COVID-19) Ceph POSITIVE (Negative)
[2022-07-15] MEDS ORDERED: GADOBUTROL 65ML VIAL IV ONE (12:56)
--- NOTE | 2022-07-15 13:11 | Magnetic Resonance Report ---
MRI OF THE BRAIN COMBO CLINICAL HISTORY: Strokelike symptoms. COMPARISON STUDY: CT of the brain dated 07/15/2022. TECHNIQUE: MRI of the brain was performed utilizing various T1 and T2-weighted sequences in the axial , sagittal, and coronal planes. Contrast-enhanced sequences were acquired following the administratio n of 7.5 cc of Gadavist. FINDINGS: Brain parenchyma: There is age-related involutional change noting mild subcortical and periventricula r microangiopathic disease. There is no hemorrhage or mass effect. There is no restricted diffusion t o suggest acute ischemia. No enhancing mass lesion is identified on the postcontrast images. Gonzalez-whi te matter differentiation is preserved. No extra-axial fluid collection is seen. The cerebellar tonsi ls are normal in configuration. Ventricles, sulci, and cisterns: Prominent secondary to involutional change. Pituitary and sella: Unremarkable. Intracranial vasculature: Normal flow voids are maintained at the skull base. Orbits: The bony orbits are grossly intact. Orbital contents are normal in appearance. Sinuses and mastoids: There are bilateral mastoid effusions, left larger than right. Fluid is seen wi thin the middle ear bilaterally. Mucosal thickening is noted in the sphenoid sinuses. The remaining p aranasal sinuses are clear. Calvarium: Unremarkable. Cervical cord: Partially visualized cervical spinal cord is normal in morphology and signal intensity . IMPRESSION: No acute intracranial abnormality. ACT 112: Negative or not required by law. Electronically signed by: Austin Darby M.D. 07/15/2022 1:09 PM
[2022-07-15] MEDS ORDERED: ACETAMINOPHEN 1,000 MG/100 ML VIAL IV STA (15:08)
[2022-07-15] MEDS ORDERED: ALUMINUM/MAGNESIUM SUSP 30 ML UDC PO PRN (15:10)
[2022-07-15] MEDS ORDERED: POLYETHYLENE (MIRALAX) 17 GM PACK PO PRN (15:10)
[2022-07-15] MEDS ORDERED: ONDANSETRON INJ 2 MG/ML 2 ML VIAL IV PRN (15:10)
[2022-07-15] MEDS ORDERED: MAGNESIUM HYDROXIDE SUSP 30 ML UDC PO PRN (15:10)
[2022-07-15] MEDS ORDERED: AZITHROMYCIN 250 MG TAB PO ONE (15:10)
[2022-07-15] MEDS ORDERED: PHARMACIST DISCHARGE MED REC CONSULT PRN (15:10)
[2022-07-15] MEDS ORDERED: DICLOFENAC SOD 1% GEL 100 GM TUBE EXT PRN (15:10)
[2022-07-15] MEDS ORDERED: ACETAMINOPHEN 325 MG TAB PO PRN (15:10)
[2022-07-15] MEDS ORDERED: AZITHROMYCIN 500 MG in DEXTROSE 5% 250 ML IV STA (15:39)
[2022-07-15] MEDS: SACCHAROMYCES BOULARDII 250 MG CAP PO SCH (17:00)
[2022-07-15] MEDS: LEVOTHYROXINE SODIUM 50 MCG TABLET PO SCH (17:00)
[2022-07-15] MEDS: cefTRIAXone SODIUM 1,000 MG in DEXTROSE 5% AD-VAN 50 ML IV SCH (17:16)
[2022-07-15] MEDS ORDERED: LACTATED RINGER'S 1,000 ML IV ONE (19:25)
[2022-07-15] MEDS: lisinopril 2.5 MG TAB PO SCH (20:12)
[2022-07-15] MEDS: ENOXAPARIN INJ 40 MG/0.4 ML SYR SQ SCH (22:15)
--- NOTE | 2022-07-16 05:01 | Electrocardiogram Report ---
Test Reason : Blood Pressure : / mmHG Vent. Rate : 095 BPM Atrial Rate : 136 BPM P-R Int : 000 ms QRS Dur : 078 ms QT Int : 328 ms P-R-T Axes : 000 -30 -04 degrees QTc Int : 412 ms Poor data quality, interpretation may be adversely affected Atrial fibrillation Left axis deviation Nonspecific T wave abnormality Possible Inferior infarct Abnormal ECG When compared with ECG of 26-FEB-2022 19:32, T wave amplitude has decreased in Anterolateral leads Confirmed by Kameron Bruno ([id number]) on 07/16/2022 5:01:36 AM Referred By: Confirmed By:Kameron Bruno
[2022-07-16] MEDS: LEVOTHYROXINE SODIUM 50 MCG TABLET PO SCH ×2 (05:57→06:02)
[2022-07-16 08:07] LABS: Hemoglobin 14.2 g/dl (14.0-18.0); Mean Corpuscular Hemoglobin 33.2 pg (25.0-34.0); Mean Corpuscular Hgb Conc 35.5 g/dL (32.0-36.0); Mean Corpuscular Volume 93.5 fL (80.0-100.0); Platelet Count 116 K/uL (130-400); RDW Coefficient of Variation 14.9 % (11.5-14.5); RDW Standard Deviation 51.1 fL (36.4-46.3); Red Blood Count 4.28 M/uL (4.70-6.10); White Blood Count 4.73 K/ul (4.8-10.8)
[2022-07-16] MEDS: AZITHROMYCIN 250 MG TAB PO SCH (08:28)
[2022-07-16] MEDS: ASPIRIN 81 MG ECTAB PO SCH (08:28)
[2022-07-16] MEDS: ASCORBIC ACID 500 MG TAB PO SCH (08:28)
[2022-07-16] MEDS: allopurinoL 100 MG TAB PO SCH (08:28)
[2022-07-16] MEDS: PANTOprazole 40 MG TAB PO SCH (08:29)
[2022-07-16] MEDS: CHOLECALCIFEROL 1,000 UNITS 25 MCG TAB PO SCH (08:29)
[2022-07-16] MEDS: PYRIDOXINE HCL 50 MG TAB PO SCH (08:29)
[2022-07-16] MEDS: CYANOCOBALAMIN (B-12) 500 MCG TABLET PO SCH (08:29)
[2022-07-16] MEDS: SENNA 8.6 MG TAB PO SCH (08:30)
[2022-07-16] MEDS: SACCHAROMYCES BOULARDII 250 MG CAP PO SCH (08:30)
[2022-07-16 08:31] LABS: Albumin Globulin Ratio 1.2 (0.9-2); Albumin Level 3.5 gm/dl (3.4-5.0); BUN Creatinine Ratio 25.6 (10-20); Bilirubin,Total 2.2 mg/dl (0.2-1.0); Calcium 9.1 mg/dl (8.5-10.1); Chol HDL Ratio 2.8 (0-5); Creatinine Clr Calc Pharmacy 57.5 ml/min; Est GFR (African American) 87.5 ml/min; Est GFR (Non-African American) 75.5 ml/min; Globulin 2.9 gm/dl (2.5-4.0); Potassium 3.8 mmol/L (3.5-5.1); Total Protein 6.4 gm/dl (6.0-8.3)
[2022-07-16 08:34] LABS: Basophils # (auto) 0.02 K/uL (0-0.2); Basophils % (auto) 0.4 %; Echinocytes 1+; Eosinophils # (auto) 0.37 K/uL (0-0.50); Eosinophils % (auto) 7.8 %; Immature Granulocytes # (auto) 0.01 K/uL (0.01-0.20); Immature Granulocytes % (auto) 0.2 %; Lymphocytes # (auto) 0.59 K/uL (1.2-3.4); Lymphocytes % (auto) 12.5 %; Monocytes % (auto) 8.5 %; Neutrophils # (auto) 3.34 K/uL (1.40-6.50); Neutrophils % (auto) 70.6 %
[2022-07-16] MEDS: cefTRIAXone SODIUM 1,000 MG in DEXTROSE 5% AD-VAN 50 ML IV SCH (09:45)
[2022-07-16 09:55] LABS: Estimated Average Glucose 123 mg/dl; Hemoglobin A1C 5.9 % (4.5-5.6)
--- NOTE | 2022-07-16 11:37 | Hospitalist Progress Note ---
Date of Service July 16, 2022 Assessment & Plan (1) Metabolic encephalopathy: (2) Generalized weakness: (3) SARS-CoV-2 positive: (4) Prostate cancer metastatic to bone: (5) Hypothyroidism (acquired): (6) Hypertension: (7) Hyperlipidemia: (8) GERD (gastroesophageal reflux disease): Plan 87-year-old male who has a significant past medical history of atrial fibrillation not on anticoagulation, HTN, HLD, gout, metastatic prostate cancer who presents to ED secondary to altered mental status x1 day. Pt Last known well, 07/14/22 prior to going to bed. Woke up 07/15/22 and granddaughter found in wheel chair confused, not acting self, with L sided weakness Metabolic Encephalopathy Generalized weakness SARS COV2 Positive Questionable pneumonitis on imaging CXR noted chronic interstitial coarsening with subtle ill defined bilateral airspace opacities +COVID test Considering elevated procal and CXR findings, will continue ceftriaxone and azithromycin for possible pneumonia/pneumonitis COVID 19 pneumonia vs bacterial pneumonia Currently on room air so no need for COVID specific therapies Blood cultures still in lab CT head and MRI brain negative for any acute abnormality Gabapentin on hold inview of AMS on admission. Will continue to hold for now Elevated LFT AST and ALT trending up compared to yesterday Bilirubin elevated as well. No abd tenderness on exam Reviewed Abd CT yesterday which did not show any liver lesions/intrahepatic biliary abnormalities. Status post cholecystectomy Will recheck tomorrow and monitor trend Hypothyroidism TSH elevated 10.7, free T4 0.93 Was started on levothyroxine 50mcg daily Recommend recheck tsh as OP 6-8 weeks Afib Chronic afib Follows Dr. Sarabia Not on any OAC 2/2 to frail and fall risk On ASA Rate controlled Prostate Ca with mets to Bone follows [facility], last seen 06/05/22 currently on abiraterone, LFTS need followed If continues to go up, will discuss with Oncologist per family was on Xtandi til 07/13 and stopped on his own, Dr. 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 Please see attending documentation for corrections and/or additions. Admission and Anticipated Discharge Date Admission Date: July 15, 2022 Subjective Patient seen and examined Reports cough. Patient is a poor historian. Currently alert and oriented to person and place. Reports he is not usually oriented to date except if it's written down for him Denied SOB, chest pain, palpitation Denied nausea, vomiting, abd pain Denied dysuria, freq, constipation Physical Exam Constitutional: + well hydrated; no acute distress Eyes: PERRL, conjunctivae normal, anicteric sclerae ENMT: external ear and nose normal, oropharynx normal Respiratory: normal respiratory effort, lungs clear to auscultation Cardiovascular: Rate/Rhythm: + irregularly irregular S1 S2 Gastrointestinal (Abdomen): normal bowel sounds, soft, nontender, no hepatosplenomegaly Musculoskeletal: No pedal edema Neurologic: PERRL, EOMI, accommodation nl, no face palsy, no dysarthria Psychiatric: Orientation: alert, oriented to person, oriented to place and cooperative; + not oriented to time Results & Data Results & Data ([facility]) Vital Signs (Past 12 Hours) Vital Signs Temp Pulse Resp BP Pulse Ox O2 Del Method 07/16/22 07:45 36.5 C 90 18 145/80 H 95 Room Air 07/16/22 02:59 36.7 C 63 19 141/85 H 97 Room Air 07/15/22 23:34 36.8 C 81 17 108/65 94 Room Air Laboratory Results Abnormal lab results 07/15/22 07/15/22 07/15/22 Range/Units 08:30 11:41 Unknown WBC (4.8-10.8) K/ul RBC (4.70-6.10) M/uL Hct (42.0-52.0) % RDW Std Deviation (36.4-46.3) fL RDW Coeff of Neville (11.5-14.5) % Plt Count (130-400) K/uL Lymph # (Auto) (1.2-3.4) K/uL BUN/Creatinine Ratio (10-20) Hemoglobin A1c (4.5-5.6) % Total Bilirubin (0.2-1.0) mg/dl Direct Bilirubin 0.3 H (0-0.2) mg/dl AST (13-39) U/L ALT (7-52) U/L Procalcitonin 2.51 H (0-0.5) ng/ml SARS-CoV-2 (PCR) POSITIVE A* (Negative) 07/16/22 07/16/22 07/16/22 Range/Units 07:12 07:12 07:12 WBC 4.73 L (4.8-10.8) K/ul RBC 4.28 L (4.70-6.10) M/uL Hct 40.0 L (42.0-52.0) % RDW Std Deviation 51.1 H (36.4-46.3) fL RDW Coeff of Neville 14.9 H (11.5-14.5) % Plt Count 116 L (130-400) K/uL Lymph # (Auto) 0.59 L (1.2-3.4) K/uL BUN/Creatinine Ratio 25.6 H (10-20) Hemoglobin A1c 5.9 H (4.5-5.6) % Total Bilirubin 2.2 H (0.2-1.0) mg/dl Direct Bilirubin (0-0.2) mg/dl AST 231 H (13-39) U/L ALT 193 H (7-52) U/L Procalcitonin (0-0.5) ng/ml SARS-CoV-2 (PCR) (Negative)
[2022-07-16] MEDS: lisinopril 2.5 MG TAB PO SCH (20:12)
[2022-07-16] MEDS: ENOXAPARIN INJ 40 MG/0.4 ML SYR SQ SCH (20:14)
--- NOTE | 2022-07-16 22:20 | Electrocardiogram Report ---
Test Reason : Blood Pressure : / mmHG Vent. Rate : 082 BPM Atrial Rate : 083 BPM P-R Int : 000 ms QRS Dur : 084 ms QT Int : 390 ms P-R-T Axes : 000 -34 030 degrees QTc Int : 455 ms Atrial fibrillation Left axis deviation Low voltage QRS Abnormal ECG When compared with ECG of 15-JUL-2022 08:40, No significant change was found Confirmed by Kameron Bruno ([id number]) on 07/16/2022 10:19:50 PM Referred By: REFERRED SELF Confirmed By:Kameron Bruno
[2022-07-17] MEDS: LEVOTHYROXINE SODIUM 50 MCG TABLET PO SCH (06:00)
[2022-07-17 08:15] LABS: Hematocrit (blood only) 37.9 % (42.0-52.0); Hemoglobin 13.8 g/dl (14.0-18.0); Mean Corpuscular Hgb Conc 36.4 g/dL (32.0-36.0); Mean Corpuscular Volume 90.7 fL (80.0-100.0); Mean Platelet Volume 10.9 fL (9.4-12.4); Platelet Count 109 K/uL (130-400); RDW Coefficient of Variation 14.7 % (11.5-14.5); Red Blood Count 4.18 M/uL (4.70-6.10); White Blood Count 4.94 K/ul (4.8-10.8)
[2022-07-17] MEDS: PYRIDOXINE HCL 50 MG TAB PO SCH (08:25)
[2022-07-17] MEDS: SACCHAROMYCES BOULARDII 250 MG CAP PO SCH (08:25)
[2022-07-17] MEDS: allopurinoL 100 MG TAB PO SCH (08:25)
[2022-07-17] MEDS: AZITHROMYCIN 250 MG TAB PO SCH (08:25)
[2022-07-17] MEDS: ASCORBIC ACID 500 MG TAB PO SCH (08:25)
[2022-07-17] MEDS: cefTRIAXone SODIUM 1,000 MG in DEXTROSE 5% AD-VAN 50 ML IV SCH (08:26)
[2022-07-17] MEDS: ASPIRIN 81 MG ECTAB PO SCH (08:26)
[2022-07-17] MEDS: SENNA 8.6 MG TAB PO SCH (08:26)
[2022-07-17] MEDS: CHOLECALCIFEROL 1,000 UNITS 25 MCG TAB PO SCH (08:26)
[2022-07-17] MEDS: PANTOprazole 40 MG TAB PO SCH (08:26)
[2022-07-17] MEDS: CYANOCOBALAMIN (B-12) 500 MCG TABLET PO SCH (08:26)
[2022-07-17 08:28] LABS: Albumin Globulin Ratio 1.1 (0.9-2); Albumin Level 3.2 gm/dl (3.4-5.0); BUN Creatinine Ratio 26.1 (10-20); Bilirubin,Total 1.6 mg/dl (0.2-1.0); Creatinine Clr Calc Pharmacy 58.8 ml/min; Est GFR (African American) 88.3 ml/min; Est GFR (Non-African American) 76.2 ml/min; Globulin 2.9 gm/dl (2.5-4.0); Potassium 3.7 mmol/L (3.5-5.1); Total Protein 6.1 gm/dl (6.0-8.3)
--- NOTE | 2022-07-17 11:10 | Hospitalist Progress Note ---
Date of Service July 17, 2022 Assessment & Plan (1) Metabolic encephalopathy: (2) Generalized weakness: (3) SARS-CoV-2 positive: (4) Prostate cancer metastatic to bone: (5) Hypothyroidism (acquired): (6) Hypertension: (7) Hyperlipidemia: (8) GERD (gastroesophageal reflux disease): Plan 87-year-old male who has a significant past medical history of atrial fibrillation not on anticoagulation, HTN, HLD, gout, metastatic prostate cancer who presents to ED secondary to altered mental status x1 day. Pt Last known well, 07/14/22 prior to going to bed. Woke up 07/15/22 and granddaughter found in wheel chair confused, not acting self, with L sided weakness Metabolic Encephalopathy Generalized weakness SARS COV2 Positive Questionable pneumonitis on imaging CXR noted chronic interstitial coarsening with subtle ill defined bilateral airspace opacities +COVID test Considering elevated procal and CXR findings, will continue ceftriaxone and azithromycin for possible pneumonia/pneumonitis COVID 19 pneumonia vs bacterial pneumonia Currently on room air so no need for COVID specific therapies Blood cultures still in lab CT head and MRI brain negative for any acute abnormality Patient does not appear confused at this time Gabapentin on hold inview of AMS on admission. Elevated LFT LFTs trended down compared to yesterday Abd CT did not show any liver lesions/intrahepatic biliary abnormalities. Status post cholecystectomy Hypothyroidism TSH elevated 10.7, free T4 0.93 Was started on levothyroxine 50mcg daily Recommend recheck tsh as OP 6-8 weeks Afib Chronic afib Follows Dr. Sarabia Not on any OAC 2/2 to frail and fall risk On ASA Rate controlled Prostate Ca with mets to Bone follows [facility]as [facility], last seen 06/05/22 per family was on Xtandi til 07/13 and stopped on his own, Dr. 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 Please see attending documentation for corrections and/or additions. Admission and Anticipated Discharge Date Admission Date: July 15, 2022 Subjective Patient seen and examined Reports cough is improving Patient is a poor historian. Denied SOB, chest pain, palpitation Denied nausea, vomiting, abd pain Denied dysuria, freq, constipation Physical Exam Constitutional: + well hydrated; no acute distress Eyes: PERRL, conjunctivae normal, anicteric sclerae ENMT: external ear and nose normal, oropharynx normal Respiratory: normal respiratory effort, lungs clear to auscultation Cardiovascular: Rate/Rhythm: + irregularly irregular S1 S2 Gastrointestinal (Abdomen): normal bowel sounds, soft, nontender, no hepatosplenomegaly Musculoskeletal: No pedal edema Neurologic: PERRL, EOMI, accommodation nl, no face palsy, no dysarthria Psychiatric: Orientation: alert, oriented to person, oriented to place and cooperative; + not oriented to time Results & Data Results & Data ([facility]) Vital Signs (Past 12 Hours) Vital Signs Temp Pulse Pulse Resp BP Pulse Ox O2 Del Method 07/17/22 08:00 82 07/17/22 08:00 Room Air 07/17/22 08:34 36.4 C L 73 20 130/81 95 Room Air 07/17/22 02:47 36.7 C 80 16 115/71 96 Room Air 07/17/22 00:24 93 H 07/16/22 23:24 36.7 C 89 18 126/76 92 Room Air Laboratory Results Abnormal lab results 07/17/22 07/17/22 Range/Units 07:36 07:36 RBC 4.18 L (4.70-6.10) M/uL Hgb 13.8 L (14.0-18.0) g/dl Hct 37.9 L (42.0-52.0) % MCHC 36.4 H (32.0-36.0) g/dL RDW Std Deviation 49.0 H (36.4-46.3) fL RDW Coeff of Neville 14.7 H (11.5-14.5) % Plt Count 109 L (130-400) K/uL Chloride 109 H (98-107) mmol/L BUN/Creatinine Ratio 26.1 H (10-20) Total Bilirubin 1.6 H (0.2-1.0) mg/dl AST 166 H (13-39) U/L ALT 169 H (7-52) U/L Albumin 3.2 L (3.4-5.0) gm/dl
[2022-07-17] MEDS: lisinopril 2.5 MG TAB PO SCH (21:12)
[2022-07-17] MEDS: ENOXAPARIN INJ 40 MG/0.4 ML SYR SQ SCH (21:17)
[2022-07-18] MEDS: LEVOTHYROXINE SODIUM 50 MCG TABLET PO SCH (05:52)
[2022-07-18 07:42] LABS: Hematocrit (blood only) 38.7 % (42.0-52.0); Hemoglobin 13.7 g/dl (14.0-18.0); Mean Corpuscular Hemoglobin 33.2 pg (25.0-34.0); Mean Corpuscular Hgb Conc 35.4 g/dL (32.0-36.0); Mean Corpuscular Volume 93.7 fL (80.0-100.0); Mean Platelet Volume 10.4 fL (9.4-12.4); Platelet Count 123 K/uL (130-400); RDW Coefficient of Variation 14.7 % (11.5-14.5); RDW Standard Deviation 50.4 fL (36.4-46.3); Red Blood Count 4.13 M/uL (4.70-6.10); White Blood Count 4.55 K/ul (4.8-10.8)
[2022-07-18 07:46] LABS: Albumin Globulin Ratio 1.2 (0.9-2); Albumin Level 3.3 gm/dl (3.4-5.0); BUN Creatinine Ratio 22.8 (10-20); Bilirubin,Total 1.5 mg/dl (0.2-1.0); Calcium 8.8 mg/dl (8.5-10.1); Creatinine Clr Calc Pharmacy 56.1 ml/min; Est GFR (African American) 85.2 ml/min; Est GFR (Non-African American) 73.5 ml/min; Globulin 2.8 gm/dl (2.5-4.0); Potassium 3.6 mmol/L (3.5-5.1); Total Protein 6.1 gm/dl (6.0-8.3)
[2022-07-18] MEDS: PYRIDOXINE HCL 50 MG TAB PO SCH (08:55)
[2022-07-18] MEDS: SACCHAROMYCES BOULARDII 250 MG CAP PO SCH (08:55)
[2022-07-18] MEDS: allopurinoL 100 MG TAB PO SCH (08:55)
[2022-07-18] MEDS: CHOLECALCIFEROL 1,000 UNITS 25 MCG TAB PO SCH (08:55)
[2022-07-18] MEDS: PANTOprazole 40 MG TAB PO SCH (08:55)
[2022-07-18] MEDS: AZITHROMYCIN 250 MG TAB PO SCH (08:55)
[2022-07-18] MEDS: ASCORBIC ACID 500 MG TAB PO SCH (08:55)
[2022-07-18] MEDS: cefTRIAXone SODIUM 1,000 MG in DEXTROSE 5% AD-VAN 50 ML IV SCH (08:55)
[2022-07-18] MEDS: CYANOCOBALAMIN (B-12) 500 MCG TABLET PO SCH (08:55)
[2022-07-18] MEDS: ASPIRIN 81 MG ECTAB PO SCH (08:55)
[2022-07-18] MEDS: SENNA 8.6 MG TAB PO SCH (08:55)
--- NOTE | 2022-07-18 15:09 | Discharge Summary ---
Discharge Summary Date of Service July 18, 2022 Notes For Next Care Provider Follow up recovery Continue management of chronic medical problems Check thyroid function test in 6-8 weeks Medication Changes From Visit Discharged on augmentin and azithromycin for 2 more days to complete treatment Started on levothyroxine 50mcg daily Admission HPI Per Admitting Provider This is a 87-year-old male who has a significant past medical history of atrial fibrillation not on anticoagulation, HTN, HLD, gout, metastatic prostate cancer who presents to ED secondary to altered mental status x1 day. History is mostly obtained from prehospital personnel and ED provider. Son at bedside provides minimal history. Patient was in his normal mental state of health as of yesterday on 07/14/2022. His granddaughter lives with him. At approximately 7:00 this morning she heard him trying to get up and around. She found him in his wheelchair confused and not acting himself with concern for L sided weakness. She noted when she tried to put his left arm back on his wheel chair that it fell right back off. There was report that he may have been slurring his words. Due to change in status EMS was summoned. According to EMS report his vital signs were stable. It is noted that he recently was started and stopped on Xtandi approximately 2 days ago and that it was causing hallucinations. No reported seizure activity. He does have stage IV prostate cancer and [facility]. At baseline he is typically in a wheelchair but able to perform self transfers. His granddaughter does assist him but able to perform adls. Typically he is alert and oriented x3 with occasional bouts of confusion. In ED patient remained hemodynamically stable. There is initial reading of significantly elevated blood pressure however during my evaluation his blood pressure was normotensive. His CBC and CMP were generally unremarkable except for mildly elevated glucose at 132, total bilirubin at 2.0 and AST of 57. His TSH was 10.75 however free T4 was normal. Blood cultures, drug tox screen, ammonia level and urine currently pending on admission. EKG revealed a rate controlled atrial fibrillation. Patient follows with [facility] cardiology. He is not anticoagulated secondary to age, frailty and frequent falls. He did have recent lab work done on 06/16/2022 as outpatient that was reviewed and [facility] medical records. At that time BNP generally unremarkable, vitamin D 74. In regards to the patient's prostate cancer he was initially diagnosed in 2019 in which she had been on androgen deprivation therapy with Lupron as well as bicalutamide. Initial PSA was greater than 100. Records reviewed from December 2021 note revealed patient currently on abiraterone treatment. He does have mets to bone. Supportive care/hospice was also discussed. Most recent PSA 05/2022 was WNL. Admission Exam Per Admitting Provider Constitutional: Elderly, M, Hard of hearing, WD/WN, vitals as above, NAD, lying in bed, drowsy but arousable to verbal stimulation, confused Head: Normocephalic, Atraumatic, temporal wasting Eyes: PERRL, conjunctivae normal, anicteric sclerae, ENMT: external ear and nose normal, oropharynx normal dry membranes Neck: trachea midline, no thyromegaly normal visual inspection Respiratory: normal respiratory effort, lungs clear to auscultation but decreased at bases due to poor insp effort/doesn't follow commands, no wheeze, rales, rhonchi. Normal insp/exp effort, no accessory muscle use Cardiovascular: reg rate, irr rhythm, no murmur, no edema Vessels: no JVD or carotid bruit Chest: normal inspection of chest Abdomen: normal bowel sounds, soft, nontender, no hepatosplenomegaly Musculoskeletal: no cyanosis or clubbing, AROM x 4, decreased shredding machine tender strength to LUE, b/l lower ext 3/5 Skin: no rashes, warm and dry normal turgor Neurologic: PERRL, EOMI, accommodation nl, no face palsy, no dysarthria CN's II-XI intact bilaterally and moves all extremities Psychiatric: A+Ox 1, understands he is in hospital butunable to tell me his name or son at bedside, euthymic affect Lymphatic: no cervical or axillary lymphadenopathy : deferred Principal Dx & Hospital Course #1 = Principal Diagnosis (1) Metabolic encephalopathy: (2) Generalized weakness: (3) SARS-CoV-2 positive: (4) Prostate cancer metastatic to bone: (5) Hypothyroidism (acquired): (6) Hypertension: (7) Hyperlipidemia: (8) GERD (gastroesophageal reflux disease): Plan 87-year-old male who has a significant past medical history of atrial fibrillation not on anticoagulation, HTN, HLD, gout, metastatic prostate cancer who presents to ED secondary to altered mental status x1 day. Pt Last known well, 07/14/22 prior to going to bed. Woke up 07/15/22 and granddaughter found in wheel chair confused, not acting self, with L sided weakness Metabolic Encephalopathy Generalized weakness SARS COV2 Positive Questionable pneumonitis on imaging CXR noted chronic interstitial coarsening with subtle ill defined bilateral airspace opacities +COVID test COVID 19 pneumonia vs bacterial pneumonia Considering elevated procal and CXR findings, was treated with ceftriaxone and azithromycin for possible pneumonia/pneumonitis This was changed to augmentin and azithromycin on discharge to complete treatment Currently on room air so no need for COVID specific therapies Blood cultures negative CT head and MRI brain negative for any acute abnormality Patient does not appear confused at this time Elevated LFT Mildly elevated LFT Abd CT did not show any liver lesions/intrahepatic biliary abnormalities. Status post cholecystectomy Hypothyroidism TSH elevated 10.7, free T4 0.93 Was started on levothyroxine 50mcg daily Recommend recheck tsh as OP 6-8 weeks Afib Chronic afib Follows Dr. Sarabia Not on any OAC 2/2 to frail and fall risk On ASA Rate controlled Prostate Ca with mets to Bone follows [facility]as [facility], last seen 06/05/22 per family was on Xtandi til 07/13 and stopped on his own, Dr. 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 Outpatient follow up GERD Continue PPI Called son and updated him about plans and new meds Discharge Exam Constitutional + well hydrated; no acute distress Eyes PERRL, conjunctivae normal, anicteric sclerae ENMT external ear and nose normal, oropharynx normal Respiratory normal respiratory effort, lungs clear to auscultation Cardiovascular Rate/Rhythm: + irregularly irregular S1 S2 Gastrointestinal (Abdomen) normal bowel sounds, soft, nontender, no hepatosplenomegaly Neurologic PERRL, EOMI, accommodation nl, no face palsy, no dysarthria Psychiatric Orientation: alert, oriented to person, oriented to place and cooperative; + not oriented to time Updated Medication List Medication Instructions Recorded Confirmed Type allopurinol 100 mg tablet 100 mg PO QAM 02/03/20 07/15/22 History aspirin 81 mg tablet,delayed 81 mg PO QAM 02/03/20 07/15/22 History release cholecalciferol (vitamin D3) 25 25 mcg PO DAILY 02/03/20 07/15/22 History mcg (1,000 unit) capsule ascorbic acid (vitamin C) 1,000 mg 1 g PO DAILY 06/25/20 07/15/22 History tablet (Vitamin C) cyanocobalamin (vitamin B-12) 1,000 mcg PO DAILY 06/25/20 07/15/22 History 1,000 mcg tablet (Vitamin B-12) diclofenac sodium 1 % topical gel 2 g topical UD PRN Pain, Moderate 06/25/20 07/15/22 History omeprazole 20 mg capsule,delayed 20 mg PO DAILY 06/25/20 07/15/22 History release pyridoxine (vitamin B6) 100 mg 100 mg PO DAILY 06/25/20 07/15/22 History tablet (Vitamin B-6) abiraterone 500 mg tablet 1,000 mg PO HS 02/26/22 07/15/22 History lisinopril 2.5 mg tablet 2.5 mg PO HS 02/26/22 07/15/22 History nitroglycerin 0.4 mg sublingual 0.4 mg sublingual UD PRN Chest Pain 02/26/22 07/15/22 History tablet sennosides 8.6 mg capsule (senna) 8.6 mg PO DAILY 02/26/22 07/15/22 History gabapentin 100 mg capsule 100 mg PO [facility]HS 07/15/22 07/15/22 History amoxicillin 875 mg-potassium 1 tab PO BID 2 days #4 tabs 07/18/22 Rx clavulanate 125 mg tablet azithromycin 250 mg tablet 250 mg PO QAM 2 days #2 tabs 07/18/22 Rx guaifenesin 100 mg/5 mL oral liquid 200 mg (10 mL) PO Q6H PRN cough 07/18/22 Rx #500 mL levothyroxine 50 mcg tablet 50 mcg PO DAILY #30 tabs 07/18/22 Rx Hospital Stay Data Consultations 07/15/22 10:39 ED Decision to Admit Stat Diagnostic Imagining Performed 07/15/22 08:46 CT abd pelvis wo con Stat CT head/brain wo con Stat 07/15/22 11:33 MR brain wo/w con Routine Pending Results Patient Have Any Pending Studies at Discharge: No Discharge Instructions Given to Patient (Per Discharging Provider) Mr Delcid You were brought to the hospital for confusion. You were evaluated and found to have COVID 19 infection. You had scans of your brain which did not show any acute stroke. You are being discharged home with home health services. Please complete remaining days of antibiotics Please ensure follow up with your Primary Doctor. It was a pleasure taking care of you. Total Time Total Time Spent Total Time Spent (In Minutes): 50 Total Time Includes: Examination of the Patient, Discharge Planning, Medication Reconciliation and Other
== END 2022-07-18 13:39 | disposition home health service (06) | DRG 177 ==
LOC: ED 08:34 → EDINP 12:35 → SUATTDRO 12:35 → 2S 15:10